=== PATIENT | male | born 1950 | race Caucasian/White ===

== ENCOUNTER 2019-02-10 14:48 | Emergency (ER) | payer MEDICARE, OTHER, SELFPAY ==
[2019-02-10 14:56] VITALS: BP 154/79; PULSE 78; RESP 20; TEMP 36.6; O2SAT 95; BMI 36.7
--- NOTE | 2019-02-10 15:01 | W.ED.BACK ---
HPI - Back Pain/Injury General: Chief Complaint: Urogenital-Male Stated Complaint: back pain, patient presents with left flank pain x2 days. Patient comes in due to worsening pain this morning and noticeable blood in urine. Patient does have a history of renal stone, with the last one being about 8 years ago. Patient appears well. Patient appears in moderate pain. Patient reports no routine medications except levothyroxine for his thyroid. Patient also takes one blood pressure medication. Time Seen by Provider: 02/10/19 15:01 Source: patient Mode of arrival: ambulatory Limitations: no limitations History of Present Illness: Associated symptoms: Reports hematuria Review of Systems General: Reports: 10 or more systems reviewed and unremarkable except in HPI and below : Reports: blood in urine Musc: Reports: back pain PFSH ED PFSH: Statuses (acute, chronic, etc) shown below reflect problem list status as previously entered and may not be historically accurate Social History Smoking and tobacco status: never smoked Physical Exam Const: COMMON NORMALS: oriented x3 GENERAL APPEARANCE: cooperative and in distress (mild) HENMT: COMMON NORMALS: normocephalic, external ears normal, EAC's normal, TM's normal bilaterally and external nose normal HEAD & SCALP: normal to inspection and normocephalic FACE & SINUS: normal facial exam NOSE: external nose normal GENERAL EAR: hearing grossly impaired EXTERNAL EAR: Yes external ears normal EXTERNAL AUDITORY CANAL: EAC's normal TYMPANIC MEMBRANE: TM's normal bilaterally MOUTH: oral and palatal mucosa normal THROAT: posterior oropharynx normal Eye: COMMON NORMALS: PERRL and EOMs intact bilaterally PUPIL: Yes PERRL Neck/C-Spine: COMMON NORMALS: full ROM and no lymphadenopathy Lymph: LYMPHATIC: no lymphedema noted Chest: COMMONS NORMALS: inspection of chest normal and palpation of chest normal Resp: COMMON NORMALS: normal respiratory effort and clear to auscultation bilaterally AUSCULTATION: clear to auscultation bilaterally Cardio: COMMON NORMALS: regular rate and regular rhythm RATE: regular rate RHYTHM: regular rhythm GI: COMMON NORMALS: normal to inspection, nondistended, normoactive bowel sounds and non-tender : COMMON NORMALS: Yes no CVA tenderness BLADDER/KIDNEY EXAM: Yes no CVA tenderness Back/Pelvis: COMMON NORMALS: no CVA tenderness and thoracic and lumbar spine normal to inspection Extremity: COMMON NORMALS: normal to inspection GENERAL: No edema Neuro: COMMON NORMALS: oriented x3, moves all extremities and no focal motor deficits Psych: COMMON NORMALS: mental status grossly normal and cooperative Skin: COMMON NORMALS: no rashes or lesions noted GENERAL SKIN EXAM: no rashes or lesions noted Course Vital Signs: Vital signs: Vital Signs Temperature 97.9 F 02/10/19 14:56 Pulse Rate 78 02/10/19 14:56 Respiratory Rate 20 H 02/10/19 15:59 Blood Pressure 154/79 02/10/19 14:56 Pulse Oximetry 95 02/10/19 14:56 MDM - Back Pain/Injury MDM Narrative: Medical decision making narrative: Patient comes in with left flank pain. Patient states that he has a history of kidney stones. Patient noticed blood in his urine. Exam notes some mild CVA tenderness. Abdomen soft nontender. Skin is warm and dry. Vital signs are stable without fever. Differential diagnosis includes pyelonephritis, prostatitis, UTI, renal colic, diverticulitis. CT scan noted no hydronephrosis. Blood count was showed a white blood cell count of 16.2. Renal function was good on BMP. Patient was given 500 mL's of fluid with 4 mg of morphine and 4 mg ondansetron. Patient had resolution of pain after CT scan was done. Patient feels that he may have passed a stone. We will treat for UTI, encourage plenty of fluids and follow-up with primary care for further treatment. Patient was agreeable to plan and reported understanding. Lab Data: Labs: Lab Results 02/10/19 02/10/19 02/10/19 Range/Units 15:25 15:25 16:00 WBC 16.2 H (4.0-10.0) 10^3/ uL RBC 4.81 (4.1-5.3) 10^6/u L Hgb 15.4 (11.7-16.6) g/dL Hct 45.4 (42.0-52.0) % MCV 94.4 H (80-94) fL MCH 32.0 (28.0-34.0) pg MCHC 33.9 (30.0-36.0) g/dL RDW 11.8 L (12.1-15.1) % Plt Count 212 (130-400) 10^3/c mm MPV 9.2 (7.4-10.4) fL Neut % (Auto) 78.4 % Lymph % (Auto) 13.7 % [place] % (Auto) 7.1 % Eos % (Auto) 0.2 % Baso % (Auto) 0.2 % Neut # (Auto) 12.7 H (1.8-7.7) 10^3/u L Lymph # (Auto) 2.2 (0.8-4.8) 10^3/u L [place] # (Auto) 1.2 H (0.2-0.9) 10^3/u L Eos # (Auto) 0.0 (0.0-0.8) 10^3/u L Baso # (Auto) 0.0 (0.0-0.1) 10^3/u L Nucleated RBC % (a uto) 0 % Nucleated RBCs # 0.0 /100WBC Sodium 134 L (136-145) mmol/L Potassium 4.1 (3.5-5.1) mmol/L Chloride 98 (98-107) mmol/L Carbon Dioxide 25 (22-29) mmol/L Anion Gap 15.1 (5-19) BUN 13 (8-23) mg/dL Creatinine 1.0 (0.7-1.2) mg/dL GFR Calculation 74.5 L (90-130) mL/min Glucose 127 H (74-106) mg/dL Calcium 9.6 (8.8-10.2) mg/Dl Urine Color Red (Yellow) Urine Appearance Hazy A (CLEAR) Urine pH 5 (5-7) Ur Specific Gravit y 1.010 (1.005-1.030) Urine Protein 1+ H (Negative) Urine Glucose (UA) Norm (Normal) Urine Ketones Negative (Negative) Urine Occult Blood 3+ H (Negative) Urine Nitrate Negative (Negative) Urine Bilirubin Neg (NEGATIVE) Urine Urobilinogen Norm (Negative) mg/dL Ur Leukocyte Lucie ase 1+ H (Negative) Urine RBC Too numerous to c nt H (0-2) /hpf Urine WBC Too numerous to c nt H (0-5) /hpf Ur Squamous Epith Cells 0-4 H (0-5) Urine Bacteria 1+ H (NONE) Discharge Plan Discharge Patient Disposition: Home, Self-Care Clinical Impression: Renal colic on left side, Acute UTI Condition: Stable Prescriptions: New ciprofloxacin HCl 500 mg tablet 500 mg PO BID Qty: 20 RF: 0 hydrocodone-acetaminophen 5-325 mg tablet 1 tab PO Q6H PRN (Reason: pain, moderate) Qty: 14 RF: 0 ondansetron HCl 4 mg tablet 4 mg PO Q8H PRN (Reason: nausea and vomiting) Qty: 10 RF: 0 tamsulosin 0.4 mg capsule 0.4 mg PO DAILY Qty: 10 RF: 0 No Action aspirin 81 mg Tablet,Delayed Release (Dr/Ec) 81 mg PO DAILY RF: 0 amlodipine 10 mg tablet 10 mg PO DAILY RF: 0 levothyroxine 150 mcg tablet 150 mcg PO DAILY RF: 0 goldenseal 325 mg Capsule 325 mg PO DAILY RF: 0 apple cider vinegar 500 mg Tablet 500 mg PO DAILY RF: 0 Beet Root 0 mg PO DAILY RF: 0 Discharge Orders: Discharge Order (Routine); Ordered 02/10/19 Ordered By: Louis Prabhakar Referrals: Feliberto Piña MD [Family Provider] - Discharge Diet: Usual diet Discharge Activity: Resume usual activity Patient Instructions: Hematuria - Male, Renal Colic (ED) Activity Restrictions/Additional Instructions: Drink plenty of water Activity as tolerated Follow-up with primary care in one week Return to ER for worsening signs or symptoms such as nausea, vomiting or high fever Coding Level of Care Code 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
--- NOTE | 2019-02-10 15:08 | CTR_ITS ---
PROCEDURE INFORMATION: Exam: CT Abdomen And Pelvis Without Contrast Exam date and time: 02/10/2019 4:11 PM Age: 68 years old Clinical indication: Abdominal pain; Flank; Left; Additional info: Left flank pain, hematuria TECHNIQUE: Imaging protocol: Computed tomography of the abdomen and pelvis without contrast. Total DLP: 2141.09 mGy-cm Radiation optimization: All CT scans at this facility use at least one of these dose optimization techniques: automated exposure control; mA and/or kV adjustment per patient size (includes targeted exams where dose is matched to clinical indication); or iterative reconstruction. COMPARISON: CT abdomen pelvis wo con [id number] 04/30/2016 1:03 AM FINDINGS: Liver: Low-density fatty liver. Gallbladder and bile ducts: Normal. No calcified stones. No ductal dilation. Pancreas: Normal. No ductal dilation. Spleen: Normal. No splenomegaly. Adrenals: Normal. No mass. Kidneys and ureters: Normal appearing kidneys. No kidney or ureteral stone evident. No hydronephrosis. Stomach and bowel: Unremarkable. No obstruction. No mucosal thickening. Appendix: No evidence of appendicitis. Intraperitoneal space: Unremarkable. No free air. No significant fluid collection. Vasculature: Mild aortoiliac atherosclerotic calcification. No aneurysm. Lymph nodes: Unremarkable. No enlarged lymph nodes. Bladder: Partially contracted urinary bladder with mild generalized wall thickening (6-7 mm). Reproductive: Enlarged prostate with several small central calcifications. Bones/joints: Unremarkable. No acute fracture. Soft tissues: Unremarkable. CT/CT kidney stone [id number] IMPRESSION: 1) no acute process evident. 2) chronic findings including fatty liver, enlarged prostate with mild urinary bladder wall thickening. Radiation Dose CTDIVOL = (mGy): DLP = 2141.09 (mGy-cm)
[2019-02-10 15:38] LABS: Basophils % 0.2 %; Eosinophils % 0.2 %; Hematocrit 45.4 % (42.0-52.0); Hemoglobin 15.4 g/dL (11.7-16.6); Lymphocytes # 2.2 10^3/uL (0.8-4.8); Lymphocytes % 13.7 %; Mean Corpuscular HGB Conc 33.9 g/dL (30.0-36.0); Mean Corpuscular Volume 94.4 fL (80-94); Mean Platelet Volume 9.2 fL (7.4-10.4); Monocytes # 1.2 10^3/uL (0.2-0.9); Monocytes % 7.1 %; Neutrophils # 12.7 10^3/uL (1.8-7.7); Neutrophils % 78.4 %; Nucleated Red Blood Cells % 0 %; Platelet Count 212 10^3/cmm (130-400); Red Blood Count 4.81 10^6/uL (4.1-5.3); Red Cell Distribution Width 11.8 % (12.1-15.1); White Blood Count 16.2 10^3/uL (4.0-10.0)
[2019-02-10 15:58] LABS: Anion Gap 15.1 (5-19); Blood Urea Nitrogen 13 mg/dL (8-23); Calcium 9.6 mg/Dl (8.8-10.2); Carbon Dioxide 25 mmol/L (22-29); Chloride 98 mmol/L (98-107); Glomerular Filtration Rate 74.5 mL/min (90-130); Glucose 127 mg/dL (74-106); Potassium 4.1 mmol/L (3.5-5.1); Sodium 134 mmol/L (136-145)
[2019-02-10 15:59] VITALS: RESP 20
[2019-02-10] MEDS: morphine 4 mg/mL SDV 1 mL IVP (15:59)
[2019-02-10] MEDS: ondansetron 2 mg/ML SDV 2 mL 4 MG IVP (15:59)
[2019-02-10] MEDS: sodium chloride 0.9% 500 ML IV (15:59)
[2019-02-10 16:24] LABS: Bilirubin Urine Neg (NEGATIVE); Blood Urine 3+ (Negative); Glucose Urine UA Norm (Normal); Ketones Urine Negative (Negative); Leukocyte Esterase Urine 1+ (Negative); Nitrate Urine Negative (Negative); Protein Urine 1+ (Negative); Urine Appearance Hazy (CLEAR); Urine Color Red (Yellow); Urobilinogen Urine Norm (Negative); pH Urine 5 (5-7)
[2019-02-10 16:26] LABS: Bacteria Urine 1+; RBC Urine TOO NUMEROUS TO CNT /hpf (0-2); Squamous Epithelial Cell Urine 0-4 (0-5); WBC Urine TOO NUMEROUS TO CNT /hpf (0-5)
[2019-02-10 16:27] LABS: Add Urine Culture? Yes
[2019-02-10] MEDS: cefTRIAXone 1,000 MG in sodium chloride 0.9% (plus) 50 ML 100 MG IV (17:13)
[2019-02-10 18:04] VITALS: BP 155/80; PULSE 78; RESP 22; O2SAT 94
== END 2019-02-10 18:07 | disposition home or self-care (01) ==
PROVIDERS: Emergency Provider Nurse Practitioner Family; Family Provider Family Medicine
DX: N39.0 Urinary tract infection, site not specified (principal); N23 Unspecified renal colic; Z79.82 Long term (current) use of aspirin
CPT/HCPCS: 36415; 74176; 80048; 81001; 85025; 87077; 87086; 87186; 96360; 96365; 96374; 99282; A9270; J0696; J2270; J2405; J7040

== ENCOUNTER 2020-08-04 08:04 | Outpatient (CLI) | payer MEDICARE, OTHER, SELFPAY ==
--- NOTE | 2020-08-04 08:13 | US_ITS ---
WS: [id number] SCROTAL ULTRASOUND EXAMINATION CLINICAL INFORMATION: HTN/ORCHITIS/HYPOTHYROIDISM NOS COMPARISON: None. FINDINGS: TESTES Normal in size and echotexture Right testes size: 4.0 cm x 2.5 cm x 2.0 cm. Left testes size: 3.6 cm x 2.9 cm x 1.7 cm. EPIDIDYMIDES Left spermatocele measuring 10 x 7 mm Right epididymis size: cm x 1.2 cm x cm. Left epididymitis size: cm x 1.8 cm x cm. HYDROCELE Small bilateral VARICOCELE Bilateral dilated varicoceles OTHER FINDINGS None. US/US scrotum [id number] IMPRESSION: 1. Small bilateral hydroceles. 2. Left spermatocele measuring 10 x 7 mm 3. Bilateral varicoceles.
== END 2020-08-04 08:05 | disposition home or self-care (01) ==
LOC: RAD 08:09
PROVIDERS: PCP Family Medicine; Visit Provider Family Medicine
DX: I10 Essential (primary) hypertension (principal); N45.2 Orchitis; E03.9 Hypothyroidism, unspecified; N43.3 Hydrocele, unspecified; N43.41 Spermatocele of epididymis, single; I86.1 Scrotal varices
CPT/HCPCS: 76870

== ENCOUNTER 2020-11-04 07:05 | Outpatient (CLI) | payer MEDICARE, OTHER, SELFPAY ==
[2020-11-04 07:38] VITALS: BP 159/85; PULSE 62; RESP 18; TEMP 36.9; O2SAT 94; BMI 38.4
[2020-11-04 08:00] VITALS: BP 155/80; PULSE 56; RESP 16; O2SAT 97
[2020-11-04 08:54] VITALS: BP 145/73; PULSE 55; RESP 16; TEMP 36.8; O2SAT 95
--- NOTE | 2020-11-11 14:33 | PC.SOCIAL ---
antibody infusion follow up call: spoke with patients . symptoms prior to infusion: mild symptoms after infusion patient had fever, chills, body aches, fever patient continues to have cough and headache. but is improving.
== END 2020-11-04 07:06 | disposition home or self-care (01) ==
LOC: OPS 07:07
PROVIDERS: PCP Family Medicine; Visit Provider Family Medicine
DX: U07.1 COVID-19 (principal)
CPT/HCPCS: 96365

== ENCOUNTER 2022-05-29 14:52 | Emergency (ER) | payer MEDICARE, OTHER, SELFPAY ==
[2022-05-29 15:00] VITALS: BP 178/85; PULSE 60; TEMP 36.5; O2SAT 93; BMI 40.3
[2022-05-29 15:41] LABS: Add Urine Microscopic? NO; Charge for UA Resulting for Rev
[2022-05-29 15:41] LABS: Basophils # 0.1 10^3/uL (0.0-0.1); Basophils % 0.7 %; Eosinophils # 0.2 10^3/uL (0.0-0.8); Eosinophils % 2.8 %; Hematocrit 44.7 % (42.0-52.0); Lymphocytes # 2.7 10^3/uL (0.8-4.8); Lymphocytes % 37.9 %; Mean Corpuscular HGB Conc 33.6 g/dL (30.0-36.0); Mean Corpuscular Hemoglobin 31.3 pg (28.0-34.0); Mean Corpuscular Volume 93.3 fl (80-94); Mean Platelet Volume 9.3 fL (7.4-10.4); Monocytes # 0.6 10^3/uL (0.2-0.9); Monocytes % 8.2 %; Neutrophils # 3.54 10^3/uL (1.8-7.7); Neutrophils % 50.3 %; Nucleated Red Blood Cells % 0 %; Platelet Count 204 10^3/cmm (130-400); Red Blood Count 4.79 10^6/uL (4.1-5.3); Red Cell Distribution Width 11.7 % (12.1-15.1); White Blood Count 7.1 10^3/uL (4.0-10.0)
[2022-05-29 15:43] LABS: Urine Appearance Clear (CLEAR); Urine Color Yellow (Yellow)
[2022-05-29 15:44] LABS: Bilirubin Urine Neg (Negative); Blood Urine Neg (Negative); Glucose Urine UA Norm (Normal); Ketones Urine Negative (Negative); Leukocyte Esterase Urine Negative (Negative); Nitrate Urine Negative (Negative); Protein Urine Neg (Negative); Urobilinogen Urine Norm (Negative); pH Urine 5 (5-7)
[2022-05-29 15:56] LABS: Alanine Aminotransferase 52 U/L (0-41); Alkaline Phosphatase 91 U/L (40-130); Anion Gap 13.5 (5-19); Aspartate Amino Transferase 39 U/L (0-40); Blood Urea Nitrogen 16 mg/dL (8-23); Calcium 8.5 mg/dL (8.5-10.5); Carbon Dioxide 20 mmol/L (22-29); Chloride 96 mmol/L (98-107); Glomerular Filtration Rate 95.6 mL/min (90-130); Glucose 133 mg/dL (65-115); Lipase 54 U/L (13-60); Osmolality Calculated 265 mOsm/kg (285-295); Potassium 3.5 mmol/L (3.5-5.1); Sodium 126 mmol/L (136-145); Total Bilirubin 0.3 mg/dL (0.15-1.2)
--- NOTE | 2022-05-29 17:16 | ED_ITS ---
HPI - Abdominal Pain General: Chief Complaint: Abdominal Pain Stated Complaint: urinary pain Time Seen by Provider: 05/29/22 17:16 History of Present Illness: Mr Soto is a 71-year-old gentleman with history of nephrolithiasis presenting to the emergency department due to back pain. Notes right back pain that started 4 days ago, he was outside doing some work though denies any particular lifting or twisting motion. Since that time has had intermittent but progressively worsening symptoms. Right flank and back without significant radiation. Sharp and stabbing in nature. Worse with movement and palpation. Denies GI upset. No other specific changes in health, exacerbating, or alleviating factors identified. Onset (ago): day(s) Location: R flank and Other Severity: moderate Quality: stabbing and sharp Migration to: no migration Exacerbating factors: movement Review of Systems General: Reports: 10 or more systems reviewed and unremarkable except in HPI and below PFSH ED PFSH: Medical History (Updated 06/16/22 @ 19:38 by Porfirio Segovia MD) Nephrolithiasis Social History Smoking and tobacco status: never smoked Physical Exam Const: COMMON NORMALS: alert GENERAL APPEARANCE: cooperative and well developed HENMT: COMMON NORMALS: normocephalic and atraumatic HEAD & SCALP: normocephalic and atraumatic THROAT: posterior oropharynx normal Eye: COMMON NORMALS: conjunctivae normal CONJUNCTIVA: Yes conjunctivae normal SCLERA: sclerae normal Neck/C-Spine: COMMON NORMALS: supple GENERAL: Yes trachea midline Resp: COMMON NORMALS: normal respiratory effort EFFORT & INSPECTION: Yes able to speak in complete sentences Cardio: COMMON NORMALS: regular rate and regular rhythm RATE: regular rate RHYTHM: regular rhythm GI: COMMON NORMALS: Soft to palpation PALPATION: Yes Soft to palpation and No Tenderness to palpation present (GI) PERCUSSION: normal to percussion Extremity: GENERAL: Yes normal exam except as noted and No edema Neuro: COMMON NORMALS: moves all extremities SENSORIUM/ORIENTATION: Yes alert and No Orientation impaired Psych: COMMON NORMALS: mental status grossly normal and Normal thought process present THOUGHT PROCESS: Normal thought process present Course Vital Signs: Vital signs: Vital Signs Temperature 97.7 F 05/29/22 15:00 Pulse Rate 67 05/29/22 19:01 Respiratory Rate 16 05/29/22 19:01 Blood Pressure 190/96 05/29/22 19:01 Pulse Oximetry 95 05/29/22 18:03 Oxygen Delivery Me thod Room Air 05/29/22 18:03 MDM - Abdominal Pain Medical Decision Making 71-year-old gentleman presenting with back and flank pain with history of kidney stones. Exam as above. Patient is nontoxic and there is no evidence of acute surgical abdomen. Unremarkable hematologic panel. Metabolic panel with hyponatremia though this may be laboratory error given the number of abnormally low lab values and absence of clear explanation and clinical history. No evidence of UTI. CT demonstrates no acute pathology to explain symptoms. Incidental findings discussed with patient. Patient improved with analgesia, muscle relaxer. Most likely etiology of patient's symptoms is unspecified flank pain and mild dehydration. He is able to tolerate p.o. intake and symptoms are controlled satisfactory for outpatient management. The results of ED evaluation were discussed with the patient including prescriptions and/or symptomatic cares (if applicable) including appropriate and responsible use, followup plan, and return precautions. The patient verbalized understanding and felt safe for discharge. Medical Records I reviewed the patient's medical records. Lab Data I reviewed the patient's lab results. 05/29/22 15:29 05/29/22 15:29 Labs/Radiology: Radiology Impressions Abdomen/Pelvis CT 05/29/22 17:23 IMPRESSION: 1. No acute findings. 2. Mild bladder wall thickening is again present especially posteriorly. Correlate for cystitis versus chronic outlet obstruction from prostatomegaly. 3. Hepatomegaly with fatty infiltration of the liver is unchanged. Laboratory Results WBC 7.1 10^3/uL (4.0-10.0) 05/29/22 15: RBC 4.79 10^6/uL (4.1-5.3) 05/29/22 15:29 Hgb 15.0 g/dL (11.7-16.6) 05/29/22 15: Hct 44.7 % (42.0-52.0) 05/29/22 15: MCV 93.3 fl (80-94) 05/29/22 15: MCH 31.3 pg (28.0-34.0) 05/29/22 15: MCHC 33.6 g/dL (30.0-36.0) 05/29/22 15: RDW 11.7 % (12.1-15.1) L 05/29/22 15: Plt Count 204 10^3/cmm (130-400) 05/29/22 15: MPV 9.3 fL (7.4-10.4) 05/29/22 15: Neut % (Auto) 50.3 % 05/29/22 15: Lymph % (Auto) 37.9 % 05/29/22 15: [place] % (Auto) 8.2 % 05/29/22 15: Eos % (Auto) 2.8 % 05/29/22 15: Baso % (Auto) 0.7 % 05/29/22: Neut # (Auto) 3.54 10^3/uL (1.8-7.7) 05/29/22: Lymph # (Auto) 2.7 10^3/uL (0.8-4.8) 05/29/22: [place] # (Auto) 0.6 10^3/uL (0.2-0.9) 05/29/22: Eos # (Auto) 0.2 10^3/uL (0.0-0.8) 05/29/22 15: Baso # (Auto) 0.1 10^3/uL (0.0-0.1) 05/29/22: Nucleated RBC % (auto) 0 % 05/29/22: Nucleated RBCs # 0.0 /100WBC 05/29/22 15: Sodium 126 mmol/L (136-145) L 05/29/22 15: Potassium 3.5 mmol/L (3.5-5.1) 05/29/22 15: Chloride 96 mmol/L (98-107) L 05/29/22 15: Carbon Dioxide 20 mmol/L (22-29) L 05/29/22 15: Anion Gap 13.5 (5-19) 05/29/22 15: BUN 16 mg/dL (8-23) 05/29/22 15: Creatinine 0.8 mg/dL (0.7-1.2) 05/29/22 15: GFR Calculation 95.6 mL/min (90-130) 05/29/22 15: Glucose 133 mg/dL (65-115) H 05/29/22 15:29 Calculated Osmolality 265 mOsm/kg (285-295) L 05/29/22 15:29 Calcium 8.5 mg/dL (8.5-10.5) 05/29/22 15:29 Total Bilirubin 0.3 mg/dL (0.15-1.2) 05/29/22 15:29 AST 39 U/L (0-40) 05/29/22 15:29 ALT 52 U/L (0-41) H 05/29/22 15:29 Alkaline Phosphatase 91 U/L (40-130) 05/29/22 15:29 Total Protein 7.0 g/dL (6.6-8.7) 05/29/22 15: Albumin 4.0 g/dL (3.5-5.2) 05/29/22 15: Globulin 3.0 g/dL (1.3-4.6) 05/29/22 15:29 Lipase 54 U/L (13-60) 05/29/22 15:29 Urine Color Yellow (Yellow) 05/29/22 15:27 Urine Appearance Clear (CLEAR) 05/29/22 15:27 Urine pH 5 (5-7) 05/29/22 15:27 Ur Specific [place] 1.020 (1.005-1.030) 05/29/22 15:27 Urine Protein Neg (Negative) 05/29/22 15:27 Urine Glucose (UA) Norm (Normal) 05/29/22 15:27 Urine Ketones Negative (Negative) 05/29/22 15:27 Urine Blood Neg (Negative) 05/29/22 15:27 Urine Nitrate Negative (Negative) 05/29/22 15:27 Urine Bilirubin Neg (Negative) 05/29/22 15:27 Urine Urobilinogen Norm mg/dL (Negative) 05/29/22 15:27 Ur Leukocyte Esterase Negative (Negative) 05/29/22 15:27 Discharge Plan Discharge Patient Disposition: Home Clinical Impression: Acute flank pain, Dehydration, mild Condition: Stable Prescriptions: No Action doxycycline hyclate 100 mg tablet 100 mg PO BID 7 Days Qty: 14 0RF methylprednisolone [Medrol (Ian)] 4 mg tablets,dose pack See Rx Instructions PO PER PKG DIR Qty: 21 0RF Rx Instructions: PO PER PKG DIR albuterol sulfate [Ventolin HFA] 90 mcg/actuation HFA aerosol inhaler 2 puff inhalation Q6H PRN (Reason: shortness of breath or wheezing) Qty: 8.5 0RF levothyroxine 150 mcg tablet See Rx Instructions .ROUTE .COMPLEX Qty: 90 3RF Dose Instruction: Take 1 tablet by mouth once daily Rx Instructions: Take 1 tablet by mouth once daily aspirin 81 mg Tablet,Delayed Release (Dr/Ec) 81 mg PO DAILY amlodipine 10 mg tablet 10 mg PO DAILY goldenseal 325 mg Capsule 325 mg PO DAILY apple cider vinegar 500 mg Tablet 500 mg PO DAILY Beet Root 0 mg PO DAILY ciprofloxacin HCl 500 mg tablet 500 mg PO BID Qty: 20 0RF hydrocodone-acetaminophen 5-325 mg tablet 1 tab PO Q6H PRN (Reason: pain, moderate) Qty: 14 0RF ondansetron HCl 4 mg tablet 4 mg PO Q8H PRN (Reason: nausea and vomiting) Qty: 10 0RF tamsulosin 0.4 mg capsule 0.4 mg PO DAILY Qty: 10 0RF Rx Instructions: for urine retention Discharge Orders: Discharge ED (Routine); Ordered 05/29/22 Ordered By: Porfirio Segovia Referrals: Feliberto Piña MD [Primary Care Provider] - Discharge Diet: Usual diet Discharge Activity: Increase activity as tolerated Patient Instructions: Flank Pain (ED) Activity Restrictions/Additional Instructions: Thank you for visiting the emergency department. You were seen and evaluated for flank and back pain. The exact cause your symptoms is unclear though does not appear to need hospitalization at this time. You do have mild dehydration and constipation, chronic findings persist including enlarged fatty liver and enlarged prostate. Please follow-up with your primary care provider. You may use [id number] medications for constipation. I recommend goal of having multiple applesauce consistency bowel movements per day. You may use [id number] medications such as acetaminophen and ibuprofen for pain however please do not exceed the daily recommended dosage as listed on the packaging and please keep in mind that many namebrand medications contain the same active ingredients. Please avoid these medications if previously instructed to do so by another physician due to other underlying medical condition. Return to the emergency department for uncontrolled symptoms or anything else that you are concerned about and feel needs emergency department evaluation. 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
--- NOTE | 2022-05-29 17:23 | CTR_ITS ---
PROCEDURE INFORMATION: Exam: CT Abdomen And Pelvis Without Contrast Exam date and time: 05/29/2022 5:28 PM Age: 71 years old Clinical indication: Abdominal pain; Flank; Right; Additional info: R flank/back pain TECHNIQUE: Imaging protocol: Computed tomography of the abdomen and pelvis without contrast. Radiation optimization: All CT scans at this facility use at least one of these dose optimization techniques: automated exposure control; mA and/or kV adjustment per patient size (includes targeted exams where dose is matched to clinical indication); or iterative reconstruction. REPORTING DATA: Count of CT and Cardiac NM exams in prior 12 months: This patient has received 0 known CTs and 0 known cardiac nuclear medicine studies in the 12 months prior to the current study. COMPARISON: CT kidney stone [id number] 02/10/2019 4:25 PM RADIATION DOSE METRICS: Total DLP (mGy-cm): 1179.23 FINDINGS: Lungs: Right lower lobe calcified granuloma is unchanged. Heart: Cardiomegaly is unchanged. Diaphragm: Small-sized hiatal hernia is unchanged. Liver: Diffuse fatty infiltration of the liver is again present. The liver is enlarged measuring 21 cm. Gallbladder and bile ducts: Normal. No calcified stones. No ductal dilation. Pancreas: Normal. No ductal dilation. Spleen: Normal. No splenomegaly. Adrenal glands: Normal. No mass. Kidneys and ureters: Normal. No hydronephrosis. Stomach and bowel: Stool throughout the colon suggests constipation. No bowel obstruction. Appendix: No evidence of appendicitis. Intraperitoneal space: Unremarkable. No free air. No significant fluid collection. Vasculature: Unremarkable. No abdominal aortic aneurysm. Lymph nodes: Unremarkable. No enlarged lymph nodes. Urinary bladder: The bladder wall appears mildly thickened especially posteriorly. Reproductive: Prostatomegaly is unchanged. Bones/joints: Unremarkable. No acute fracture. Soft tissues: Small fat containing umbilical hernia is unchanged. Other findings: Right hilar calcified granuloma is unchanged. CT/CT kidney stone [id number] IMPRESSION: 1. No acute findings. 2. Mild bladder wall thickening is again present especially posteriorly. Correlate for cystitis versus chronic outlet obstruction from prostatomegaly. 3. Hepatomegaly with fatty infiltration of the liver is unchanged.
--- NOTE | 2022-05-29 17:46 | PC.NURSE ---
pt declined pain medication, morphine returned to pyxis. told pt to let us know if he changed his mind.
[2022-05-29] MEDS: acetaminophen 500 mg Tablet 1000 MG PO (18:01)
[2022-05-29] MEDS: methocarbamol 750 mg Tablet PO (18:02)
[2022-05-29 18:03] VITALS: BP 197/90; PULSE 67; RESP 16; O2SAT 95
[2022-05-29 19:01] VITALS: BP 190/96; PULSE 67; RESP 16
== END 2022-05-29 19:06 | disposition home or self-care (01) ==
PROVIDERS: Emergency Medicine; Emergency Provider Emergency Medicine; PCP Family Medicine
DX: R10.9 Unspecified abdominal pain (principal); E86.0 Dehydration; Z79.82 Long term (current) use of aspirin; Z87.442 Personal history of urinary calculi
CPT/HCPCS: 36415; 74176; 80053; 81003; 83690; 85025; 99285

== ENCOUNTER → 2022-08-25 08:27 | Outpatient (BNVA) | payer MEDICARE, OTHER, SELFPAY | PROVIDERS: PCP Family Medicine; Visit Provider Family Medicine | DX: I10 Essential (primary) hypertension (principal); E03.9 Hypothyroidism, unspecified; M76.60 Achilles tendinitis, unspecified leg; N20.0 Calculus of kidney | CPT/HCPCS: 80053; 80061; 84443 ==

== ENCOUNTER → 2022-08-30 10:05 | Outpatient (BNVA) | payer MEDICARE, OTHER, SELFPAY | PROVIDERS: PCP Family Medicine; Visit Provider Podiatrist Foot & Ankle Surgery | DX: M76.61 Achilles tendinitis, right leg (principal); M77.31 Calcaneal spur, right foot; M24.571 Contracture, right ankle | CPT/HCPCS: 73630; 99204 ==

== ENCOUNTER → 2023-04-10 13:49 | Outpatient (BNVA) | payer OTHER, SELFPAY | PROVIDERS: PCP Family Medicine; Visit Provider Family Medicine | DX: R30.0 Dysuria (principal) | CPT/HCPCS: 81000; 87077; 87086; 87184 ==

== ENCOUNTER 2023-04-18 16:33 | Emergency (ER) | payer MEDICARE, SELFPAY ==
[2023-04-18 16:35] VITALS: BP 180/72; PULSE 77; RESP 18; TEMP 36.4; O2SAT 96
--- NOTE | 2023-04-18 17:14 | CTR_ITS ---
PROCEDURE INFORMATION: Exam: CT Abdomen And Pelvis Without Contrast Exam date and time: 04/18/2023 5:26 PM Age: 72 years old Clinical indication: Abdominal pain; Flank; Right; Additional info: Right flank pain, HX of stones TECHNIQUE: Imaging protocol: Computed tomography of the abdomen and pelvis without contrast. Radiation optimization: All CT scans at this facility use at least one of these dose optimization techniques: automated exposure control; mA and/or kV adjustment per patient size (includes targeted exams where dose is matched to clinical indication); or iterative reconstruction. COMPARISON: CT kidney stone [id number] 05/29/2022 5:28 PM RADIATION DOSE METRICS: Total DLP (mGy-cm): 1247.43 FINDINGS: Lungs: No significant infiltrate or effusion is seen within the visualized lung bases. Heart: Mild cardiomegaly. Diaphragm: Small hiatal hernia. Liver: Mildly enlarged fatty liver, as noted with prior exam. Gallbladder and bile ducts: Normal. No calcified stones. No ductal dilation. Pancreas: Normal. No ductal dilation. Spleen: Spleen is upper limits of normal and without significant focal abnormality. Adrenal glands: Normal. No mass. Kidneys and ureters: No ureteral or renal calculus or obstructive uropathy is seen. No abnormal perinephric stranding. Stomach and bowel: Unremarkable. No obstruction. No mucosal thickening. Stool throughout the colon and correlate clinically regarding constipation. No focal inflammatory change or mesenteric stranding. Appendix: No evidence of appendicitis. Intraperitoneal space: No free fluid or ascites or fluid collection. No free air. Vasculature: Atherosclerotic vascular calcification without aneurysmal dilatation of the aorta. Lymph nodes: Unremarkable. No enlarged lymph nodes. Urinary bladder: Multiple urinary bladder calcifications or stones are seen, appearing new from prior exam. The larger of these within the posterior left aspect measures 2 cm in maximum diameter. Reproductive: Prostatomegaly, as noted with prior exam. Bones/joints: Spondylotic change thoracolumbar spine. Soft tissues: Small umbilical hernia fat. CT/CT kidney stone [id number] IMPRESSION: 1. Multiple urinary bladder calcifications or stones are seen, appearing new from prior exam 05/29/2022. The larger of these within the posterior left aspect measures 2 cm in maximum diameter. 2. No ureteral or renal calcification or stone or obstructive uropathy. No abnormal perinephric stranding. 3. Mildly enlarged fatty liver, as noted with prior exam. 4. Prostatomegaly, as noted with prior exam. 5. Stool throughout the colon and correlate clinically regarding constipation. 3.
--- NOTE | 2023-04-18 17:18 | ED_ITS ---
HPI - Male Genitourinary 2 General: Chief complaint: Urogenital-Male Stated complaint: pain while urinating Time Seen by Provider: 04/18/23 17:02 History of Present Illness: Patient presents to the ER with complaints of right flank pain, pain with urination, blood in urine, patient does have a history of multiple kidney stones in the past. Patient also started on new prostate medicine about a week ago. Patient said this feels like exactly like when he had kidney stones. Patient denies any fever chills Review of Systems 2 General: Reports: 10 or more systems reviewed and unremarkable except in HPI and below PFSH ED 2 PFSH: Medical History Hypothyroid Hypertension Nephrolithiasis Social History Smoking and tobacco/nicotine status: never used tobacco/nicotine Physical Exam 2 Const: COMMON NORMALS: no acute distress, average body habitus, patient oriented x3, no limitations, healthy appearing, alert and well nourished HENMT: COMMON NORMALS: normocephalic, atraumatic, hearing grossly normal bilaterally, external ears normal, Normal external nose present, moist oral mucous membranes and oropharynx normal HEAD & SCALP: normocephalic and atraumatic NOSE: Normal external nose present EXTERNAL EAR: Yes external ears normal Neck/C-Spine: COMMON NORMALS: no JVD Chest: COMMONS NORMALS: normal inspection of the chest and normal palpation of entire chest wall Resp: COMMON NORMALS: normal respiratory effort, No retractions, No use of accessory muscles and clear to auscultation bilaterally AUSCULTATION: clear to auscultation bilaterally Cardio: COMMON NORMALS: no JVD, regular rate, regular rhythm, S1 normal heart sound present, S2 normal heart sound present, No gallops present (Cardio), No clicks present (Cardio), No murmurs present (Cardio) and No rub (Cardio) R ATE: regular rate RHYTHM: regular rhythm HEART SOUNDS: S1 normal heart sound present and S2 normal heart sound present GI: COMMON NORMALS: Normal to inspection, nondistended, normoactive bowel sounds present, Soft to palpation, non-tender, No hepatosplenomegaly present and no masses PALPATION: Yes Soft to palpation and Yes No hepatosplenomegaly present Neuro: COMMON NORMALS: patient oriented x3 SENSORIUM/ORIENTATION: Yes alert Course 2 Vital Signs: Vital signs: Vital Signs Temperature 97.5 F L 04/18/23 16:35 Pulse Rate 66 04/18/23 19:13 Respiratory Rate 18 04/18/23 19:13 Blood Pressure 117/72 04/18/23 19:13 Pulse Oximetry 97 04/18/23 19:13 Oxygen Delivery Me thod Nasal Cannula 04/18/23 18:30 Oxygen Flow Rate 2 04/18/23 18:30 MDM - Male Medical Decision Making Lab work was obtained as well is a abdomen pelvis renal stone protocol. It showed multiple stones in the bladder but none in kidneys or ureter. It is thought that patient passed into the bladder upon arrival. Patient be discharged with pain medicine and should follow-up with his PCP on an as-needed basis. Differential Diagnosis Unlikely urinary tract infection, priapism, urethritis, epididymitis, genital herpes simplex, prostatitis, acute retention of urine or inguinal hernia Medical Records I reviewed the patient's medical records. Lab Data I reviewed the patient's lab results. 04/18/23 17:13 04/18/23 17:13 Radiology Impressions Abdomen/Pelvis CT 04/18/23 17:14 IMPRESSION: 1. Multiple urinary bladder calcifications or stones are seen, appearing new from prior exam 05/29/2022. The larger of these within the posterior left aspect measures 2 cm in maximum diameter. 2. No ureteral or renal calcification or stone or obstructive uropathy. No abnormal perinephric stranding. 3. Mildly enlarged fatty liver, as noted with prior exam. 4. Prostatomegaly, as noted with prior exam. 5. Stool throughout the colon and correlate clinically regarding constipation. 3. Laboratory Results WBC 6.30 10^3/uL (3.29-11.43) 04/18/23 17:13 RBC 4.74 10^6/uL (3.85-5.65) 04/18/23 17:13 Hgb 15.20 g/dL (11.27-16.99) 04/18/23 17:13 Hct 43.0 % (37-53) 04/18/23 17:13 MCV 90.7 fl (82-101) 04/18/23 17:13 MCH 32.1 pg (27-33) 04/18/23 17:13 MCHC 35.3 g/dL (30-55) 04/18/23 17:13 RDW 11.9 % (12.1-15.1) L 04/18/23 17:13 Plt Count 216 10^3/cmm (157-399) 04/18/23 17:13 MPV 9.4 fL (7.4-10.4) 04/18/23 17:13 Neut % (Auto) 49.9 % 04/18/23 17:13 Lymph % (Auto) 35.7 % 04/18/23 17:13 [place] % (Auto) 9.8 % 04/18/23 17:13 Eos % (Auto) 3.5 % 04/18/23 17:13 Baso % (Auto) 0.8 % 04/18/23 17:13 Neut # (Auto) 3.14 10^3/uL (1.8-7.7) 04/18/23 17:13 Lymph # (Auto) 2.3 10^3/uL (0.8-4.8) 04/18/23 17:13 [place] # (Auto) 0.6 10^3/uL (0.2-0.9) 04/18/23 17:13 Eos # (Auto) 0.2 10^3/uL (0.0-0.8) 04/18/23 17:13 Baso # (Auto) 0.1 10^3/uL (0.0-0.1) 04/18/23 17:13 Nucleated RBC % (auto) 0 % 04/18/23 17:13 Nucleated RBCs # 0.0 /100WBC 04/18/23 17:13 Sodium 136 mmol/L (136-145) 04/18/23 17:13 Potassium 4.1 mmol/L (3.5-5.1) 04/18/23 17:13 Chloride 102 mmol/L (98-107) 04/18/23 17:13 Carbon Dioxide 21 mmol/L (22-29) L 04/18/23 17:13 Anion Gap 17.1 (5-19) 04/18/23 17:13 BUN 19 mg/dL (8-23) 04/18/23 17:13 Creatinine 1.2 mg/dL (0.7-1.2) 04/18/23 17:13 GFR Calculation Not Reportable 04/18/23 17:13 Glucose 118 mg/dL (65-115) H 04/18/23 17:13 Calculated Osmolality 285 mOsm/kg (285-295) 04/18/23 17:13 Calcium 8.7 mg/dL (8.5-10.5) 04/18/23 17:13 Total Bilirubin 0.3 mg/dL (0.15-1.2) 04/18/23 17:13 AST 39 U/L (0-40) 04/18/23 17:13 ALT 50 U/L (0-41) H 04/18/23 17:13 Alkaline Phosphatase 98 U/L (40-130) 04/18/23 17:13 Total Protein 7.2 g/dL (6.6-8.7) 04/18/23 17:13 Albumin 4.1 g/dL (3.5-5.2) 04/18/23 17:13 Globulin 3.1 g/dL (1.3-4.6) 04/18/23 17:13 Urine Color Dark yellow (Yellow) 04/18/23 16:55 Urine Appearance Cloudy (CLEAR) A 04/18/23 16:55 Urine pH 5 (5-7) 04/18/23 16:55 Ur Specific [place] 1.020 (1.005-1.030) 04/18/23 16:55 Urine Protein 3+ (Negative) H 04/18/23 16:55 Urine Glucose (UA) Norm (Normal) 04/18/23 16:55 Urine Ketones 1+ (Negative) H 04/18/23 16:55 Urine Blood 3+ (Negative) H 04/18/23 16:55 Urine Nitrate Negative (Negative) 04/18/23 16:55 Urine Bilirubin 1+ (Negative) H 04/18/23 16:55 Urine Urobilinogen Norm mg/dL (Negative) 04/18/23 16:55 Ur Leukocyte Esterase 1+ (Negative) H 04/18/23 16:55 Urine RBC Too numerous to cnt /hpf (0-2) H 04/18/23 16:55 Urine WBC 5-10 /hpf (0-5) H 04/18/23 16:55 Ur Squamous Epith Cells 0-4 /hpf (0-5) H 04/18/23 16:55 Amorphous Sediment Not Reportable 04/18/23 16:55 Urine Bacteria 1+ /hpf (NONE) H 04/18/23 16:55 Urine Mucus 1+ /hpf 04/18/23 16:55 All radiology interpretation(s) finalized by discharge Discharge Plan Discharge Patient Disposition: Home Clinical Impression: Bladder stones Condition: Stable Prescriptions: New hydrocodone-acetaminophen 5-325 mg tablet 1 tab PO Q6H PRN (Reason: pain) Qty: 14 0RF No Action albuterol sulfate [Ventolin HFA] 90 mcg/actuation HFA aerosol inhaler 2 puff inhalation Q6H PRN (Reason: shortness of breath or wheezing) Qty: 8.5 0RF amlodipine 10 mg tablet 10 mg PO DAILY Qty: 90 3RF levothyroxine 150 mcg tablet See Rx Instructions .ROUTE .COMPLEX Qty: 90 3RF Dose Instruction: Take 1 tablet by mouth once daily Rx Instructions: Take 1 tablet by mouth once daily albuterol sulfate [Ventolin HFA] 90 mcg/actuation HFA aerosol inhaler 2 puff inhalation QID Qty: 6.7 0RF promethazine-DM 6.25-15 mg/5 mL syrup 5 ml PO Q6H PRN (Reason: cough) Qty: 118 2RF ciprofloxacin HCl 500 mg tablet 500 mg PO BID Qty: 20 0RF tamsulosin [Flomax] 0.4 mg capsule 0.4 mg PO DAILY Qty: 14 1RF sulfamethoxazole-trimethoprim [Bactrim DS] 800-160 mg tablet 1 tab PO BID Qty: 20 0RF aspirin 81 mg Tablet,Delayed Release (Dr/Ec) 81 mg PO DAILY goldenseal 325 mg Capsule 325 mg PO DAILY apple cider vinegar 500 mg Tablet 500 mg PO DAILY Beet Root 0 mg PO DAILY Discharge Orders: Discharge ED (Routine); Ordered 04/18/23 Ordered By: Varun Garcia Referrals: Feliberto Piña MD [Primary Care Provider] - 1 week Patient Instructions: Opioid Safety, Pain Management Activity Restrictions/Additional Instructions: Your CT scan showed he had multiple bladder stones. It is thought that he probably passed a kidney stone into your bladder upon arrival. He will be given pain medicine and instructed to follow-up with your primary care practitioner for the next 7 to 10 days for further evaluation and treatment as needed. Coding Level of Care Code ED Veterinary Practice Manager for Ryan Barrientos
[2023-04-18 17:19] LABS: Basophils # 0.1 10^3/uL (0.0-0.1); Basophils % 0.8 %; Eosinophils # 0.2 10^3/uL (0.0-0.8); Eosinophils % 3.5 %; Lymphocytes # 2.3 10^3/uL (0.8-4.8); Lymphocytes % 35.7 %; Mean Corpuscular HGB Conc 35.3 g/dL (30-55); Mean Corpuscular Hemoglobin 32.1 pg (27-33); Mean Corpuscular Volume 90.7 fl (82-101); Mean Platelet Volume 9.4 fL (7.4-10.4); Monocytes # 0.6 10^3/uL (0.2-0.9); Monocytes % 9.8 %; Neutrophils # 3.14 10^3/uL (1.8-7.7); Neutrophils % 49.9 %; Nucleated Red Blood Cells % 0 %; Platelet Count 216 10^3/cmm (157-399); Red Blood Count 4.74 10^6/uL (3.85-5.65); Red Cell Distribution Width 11.9 % (12.1-15.1)
[2023-04-18] MEDS: sodium chloride 0.9% 1,000 ML 999 ML IV (17:35)
[2023-04-18 17:38] VITALS: BP 172/79; PULSE 72; O2SAT 93
[2023-04-18] MEDS: ondansetron 2 mg/ML SDV 2 mL 4 MG IVP (17:38)
[2023-04-18] MEDS: morphine 4 mg/mL SDV 1 mL IVP (17:40)
[2023-04-18 17:46] LABS: Urine Appearance Cloudy (CLEAR); Urine Color Dark Yellow (Yellow)
[2023-04-18 17:47] LABS: Add Urine Microscopic? YES; Bilirubin Urine 1+ (Negative); Blood Urine 3+ (Negative); Glucose Urine UA Norm (Normal); Ketones Urine 1+ (Negative); Leukocyte Esterase Urine 1+ (Negative); Nitrate Urine Negative (Negative); Protein Urine 3+ (Negative); Urobilinogen Urine Norm (Negative); pH Urine 5 (5-7)
[2023-04-18 17:50] LABS: Add Urine Culture? Yes; Bacteria Urine 1+ /hpf; Mucus Urine 1+ /hpf; RBC Urine TOO NUMEROUS TO CNT /hpf (0-2); Squamous Epithelial Cell Urine 0-4 /hpf (0-5)
[2023-04-18 17:57] LABS: Albumin Level 4.1 g/dL (3.5-5.2); Alkaline Phosphatase 98 U/L (40-130); Blood Urea Nitrogen 19 mg/dL (8-23); Calcium 8.7 mg/dL (8.5-10.5); Carbon Dioxide 21 mmol/L (22-29); Chloride 102 mmol/L (98-107); Creatinine Clr Calc Pharmacy 66.7952; Globulin 3.1 g/dL (1.3-4.6); Glucose 118 mg/dL (65-115); Osmolality Calculated 285 mOsm/kg (285-295); Sodium 136 mmol/L (136-145); Total Bilirubin 0.3 mg/dL (0.15-1.2); Total Protein 7.2 g/dL (6.6-8.7)
[2023-04-18 18:13] LABS: Anion Gap 17.1 (5-19); Potassium 4.1 mmol/L (3.5-5.1)
[2023-04-18 18:30] VITALS: BP 135/80; PULSE 67; O2SAT 96
[2023-04-18 18:47] LABS: Alanine Aminotransferase 50 U/L (0-41); Aspartate Amino Transferase 39 U/L (0-40)
[2023-04-18 19:13] VITALS: BP 117/72; PULSE 66; RESP 18; O2SAT 97
== END 2023-04-18 19:16 | disposition home or self-care (01) ==
PROVIDERS: Physician Assistant; Emergency Provider Emergency Medicine; PCP Family Medicine
DX: N21.0 Calculus in bladder (principal); Z79.82 Long term (current) use of aspirin
CPT/HCPCS: 74176; 80053; 81001; 85025; 87086; 96374; 96375; 99285; J2270; J2405; J7030

== ENCOUNTER → 2023-10-17 11:40 | Outpatient (BNVA) | payer MEDICARE, SELFPAY | PROVIDERS: PCP Family Medicine; Visit Provider Family Medicine | DX: I10 Essential (primary) hypertension (principal); E03.9 Hypothyroidism, unspecified; E11.9 Type 2 diabetes mellitus without complications; R74.8 Abnormal levels of other serum enzymes; R53.83 Other fatigue | CPT/HCPCS: 80053; 80061; 82607; 83540; 84443; 85025 ==

== ENCOUNTER 2024-03-18 16:56 | Emergency (ER) | payer MEDICARE, SELFPAY ==
[2024-03-18 17:05] VITALS: BP 173/81; PULSE 59; RESP 18; TEMP 36.4; O2SAT 92; BMI 38.9
--- NOTE | 2024-03-18 17:20 | ED_ITS ---
HPI - Wound/Laceration General: Chief Complaint: Wound/Laceration Stated Complaint: ewa fell on head / laceration Time Seen by Provider: 03/18/24 17:14 Source: patient Mode of arrival: ambulatory Limitations: no limitations History of Present Illness: Patient is a 73-year-old male who presents the emergency department for laceration of scalp that he suffered earlier this afternoon. Patient states a large seizure dropped on his head, he is not any blood thinners but he does take an aspirin. Bleeding is controlled on arrival. He denies losing consciousness, persistent vomiting, seizure-like activity, or other focal neurological deficit. Only mild pain reported. States that he is supposed to be on something for blood pressure, has not been taking this and other than slightly hypertensive his vitals are unremarkable. Onset (ago): hour(s) Location: scalp Place: home Context: accidental Associated symptoms: Denies chills, fever(s), nausea or vomiting Treatments prior to arrival: bandage Related Data Home Medications ?Medication ?Instructions ?Recorded ?Confirmed Beet Root 0 mg PO DAILY 02/10/1910/16 apple cider vinegar 500 mg tablet 500 mg PO DAILY 06/2510/17/23 aspirin 81 mg tablet,delayed 81 mg PO DAILY 02/10/19 0 10/17/23 release goldenseal 325 mg capsule 325 mg PO DAILY 02/10/1911/29 Previous Rx's ?Medication ?Instructions ?Recorded albuterol sulfate 90 mcg/actuation 2 puff inhalation Q 6H PRN 07/21/21 aerosol inhaler (Ventolin HFA) shortness of breath or wheezing #8.5 grams albuterol sulfate 90 mcg/actuation 2 puff inhalation Q ID #6.7 grams 11/18/22 aerosol inhaler (Ventolin HFA) amlodipine 10 mg tablet 10 mg PO DAILY #90 tabs 08/06 09/29 levothyroxine 150 mcg tablet See Rx Instructions .Rout e 08/24/23 .COMPLEX #90 tabs Allergies Allergy/AdvReac Type Severity Reaction Status Date / Time diazepam (From Valium) Allergy ALGY-Difficulty Verified 03/18/24 17:09 Breathing iodine Allergy ALGY-Difficulty Verified 03/18/24 17:09 Breathing NSAIDS (Non-Steroidal Allergy ALGY-Bliste Verified 03/18/24 17:09 Anti-Inflamma r Penicillins Allergy ALGY-Rash Verified 03/18/24 17:09 tamsulosin AdvReac Intermediate diarrhea Verified 03/18/24 17:09 Review of Systems General: Reports: 10 or more systems reviewed and unremarkable except in HPI and below Const: Denies: fever(s) or chills Card: Denies: chest pain Resp: Denies: dyspnea GI: Denies: abdominal pain, nausea, vomiting or diarrhea Musc: Denies: extremity pain or joint pain Skin/Breast: Reports: new lesions (Laceration to scalp); Denies: rash, skin pain or skin tenderness Neuro: Denies: headache(s), numbness in extremities, weakness in extremities, lack of coordination, difficulty walking, dizziness, behavioral changes or seizure-like activity PFSH ED PFSH: Medical History Hypothyroid Hypertension Nephrolithiasis Social History Smoking and tobacco/nicotine status: never used tobacco/nicotine Physical Exam Const: COMMON NORMALS: no acute distress, average body habitus, patient oriented x3, no limitations, healthy appearing, alert and well nourished HENMT: OTHER: There is a approximately 6 cm flap-like superficial laceration to the scalp with no active bleeding. He has no raccoon eyes or Wild sign. No nasal discharge or otic discharge. No other signs of face head or neck trauma. Eye: COMMON NORMALS: Equal, round and reactive pupils present, EOMs intact bilaterally and conjunctivae normal CONJUNCTIVA: Yes conjunctivae normal PUPIL: Yes Equal, round and reactive pupils present Neck/C-Spine: COMMON NORMALS: full ROM, no lymphadenopathy, supple and no meningeal signs Resp: COMMON NORMALS: normal respiratory effort, No use of accessory muscles and clear to auscultation bilaterally AUSCULTATION: clear to auscultation bilaterally Cardio: COMMON NORMALS: regular rate and regular rhythm RATE: regular rate RHYTHM: regular rhythm Extremity: COMMON NORMALS: full ROM and capillary refill normal Neuro: COMMON NORMALS: patient oriented x3, CN's II-XII intact bilaterally, moves all extremities, no focal motor deficits and no sensory deficits noted SENSORIUM/ORIENTATION: Yes alert MENINGEAL SIGNS: Yes no meningeal signs Skin: COMMON NORMALS: no rashes or lesions noted, no wounds and turgor normal GENERAL SKIN EXAM: no rashes or lesions noted and turgor normal Procedures Laceration Laceration 1: Site: scalp Size (cm): 6 Description: flap and clean Depth: simple, single layer Local Anesthetic: lidocaine 1% Amount of anesthesia used (mL): 3 Pre-repair: wound explored, irrigated extensively and deep structures intact Skin layer closed with: other (Pratik) Number of sutures: 9 ([place]) Course Vital Signs: Vital signs: Vital Signs Temperature 97.5 F L 03/18/24 17:05 Pulse Rate 59 L 03/18/24 17:05 Respiratory Rate 18 03/18/24 17:05 Blood Pressure 173/81 03/18/24 17:05 Pulse Oximetry 92 03/18/24 17:05 MDM - Wound/Laceration Medical Decision Making This patient presented with laceration to scalp, we updated his tetanus today. On examination it did appear to need procedural closure, this was done so with staple, see procedure note. He tolerated this procedure well. I do not feel that there is any underlying intracranial pathology due to his normal neurological status and timing of this incident. I did thoroughly discussed with him and signs and symptoms to watch for for intracranial abnormality and reasons to return were discussed. They verbalized understanding. Also disc ussed reasons to return for any infection, I do not feel this needs antibiotics at this time due to it appearing clean and placement on the scalp. Discharged home. No radiology studies performed this visit Discharge Plan Discharge Patient Disposition: Home Clinical Impression: Laceration of scalp Qualifiers: Encounter type: initial encounter Qualified Code(s): S01.01XA - Laceration without foreign body of scalp, initial encounter Condition: Stable Prescriptions: No Action albuterol sulfate [Ventolin HFA] 90 mcg/actuation HFA aerosol inhaler 2 puff inhalation Q6H PRN (Reason: shortness of breath or wheezing) Qty: 8.5 0RF albuterol sulfate [Ventolin HFA] 90 mcg/actuation HFA aerosol inhaler 2 puff inhalation QID Qty: 6.7 0RF amlodipine 10 mg tablet 10 mg PO DAILY Qty: 90 3RF levothyroxine 150 mcg tablet See Rx Instructions .ROUTE .COMPLEX Qty: 90 3RF Dose Instruction: Take 1 tablet by mouth once daily Rx Instructions: Take 1 tablet by mouth once daily aspirin 81 mg Tablet,Delayed Release (Dr/Ec) 81 mg PO DAILY goldenseal 325 mg Capsule 325 mg PO DAILY apple cider vinegar 500 mg Tablet 500 mg PO DAILY Beet Root 0 mg PO DAILY Discharge Orders: Discharge ED (Routine); Ordered 03/18/24 Ordered By: Lowell Amin Referrals: Feliberto Piña MD [Primary Care Provider] - Patient Instructions: Scalp Laceration Activity Restrictions/Additional Instructions: [place] out in 5 days. Monitor for any signs of infection and return, this includes any purulent drainage, severe worsening of pain or redness, or high fever. Please keep out of the sun. Clean and dry as we discussed. Your tetanus was updated today 03/18/2024. For scalp pain you may wrap ice bag and washcloth and place for added relief. Print Language: [place] Coding Level of Care Code ED [facility] Fitter for Ryan Barrientos
[2024-03-18] MEDS: tetanus-dipt-pertussis 0.5 mL SDV IM (17:54)
[2024-03-18] MEDS: lidocaine 2% INJ 20 mL 10 ML INJECTION (17:57)
[2024-03-18 18:21] VITALS: BP 151/86; PULSE 60; O2SAT 94
== END 2024-03-18 18:22 | disposition home or self-care (01) ==
PROVIDERS: Emergency Provider Physician Assistant; PCP Family Medicine
DX: S01.01XA Laceration without foreign body of scalp, initial encounter (principal); Z79.82 Long term (current) use of aspirin; I10 Essential (primary) hypertension; W22.8XXA Striking against or struck by other objects, initial encounter
CPT/HCPCS: 12002; 90715; 99283